=== PATIENT | female | born 1945 | race Caucasian/White ===

== ENCOUNTER 2016-12-04 16:38 | Emergency (ER) | payer OTHER ==
--- NOTE | ~2016-12-04 | EKG ---
PATIENT: CONRADO RAMIREZ UNIT #: [id number] Ventricular Rate: 65 BPM Atrial Rate: 65 BPM P-R Interval: 174 ms QRS Duration: 80 ms Q-T Interval: 442 ms QTC Calculation(Bezet): 459 ms P [place]: 30 degrees Calculated R [place]: 14 degrees Calculated T [place]: 16 degrees Diagnosis Line: Normal sinus rhythm Diagnosis Line: Low voltage QRS Diagnosis Line: Otherwise normal ECG Diagnosis Line: When compared with ECG of 14-JUN-2015 01:51, Diagnosis Line: Fusion complexes are no longer Present Diagnosis Line: Premature ventricular complexes are no longer Diagnosis Line: Present Diagnosis Line: Premature supraventricular complexes are no longer Diagnosis Line: Present Diagnosis Line: Vent. rate has decreased BY 49 BPM Diagnosis Line: ST elevation now present in Lateral leads Diagnosis Line: Nonspecific T wave abnormality no longer evident Diagnosis Line: in Lateral leads Diagnosis Line: Confirmed by WALKER HAIDER MD ([id number]) on 12/08/2016 Diagnosis Line: 5:34:49 PM INTERPRETING MD: VITALY ROSE
--- NOTE | ~2016-12-04 | CR63 ---
[facility] A Service of [facility] RADIOLOGY TEXT RESULTS PATIENT: CONRADO RAMIREZ LOCATION: SED : 45 UNIT #: [id number] AGE: [address]: Stuart Noe SEX: F ORDER DR: [id number] [address] [address] [id number] MR#: [id number] Acc #: [id number] NAME: CONRADO RAMIREZ : 1945 SEX: F STUDY DATE/TIME: 12/04/2016 16:31 UNIT: SED ROOM: STUDY DESCRIPTION: CR Chest 2 View Attending Physician: Stuart Noe P.A.-C. Ordering Physician: Stuart Noe P.A.-C. Primary Care Physician: Edith Berman Aprn MEDICAL IMAGING REPORT This report is preliminary unless electronic signature is present. EXAM PA and lateral chest HISTORY Weakness and fever today. FINDINGS 2 views of the chest demonstrate the cardiac size is at the upper limits of normal. Mild linear atelectasis or scarring in the lateral left base. Small calcified mediastinal and left hilar nodes. No airspace infiltrates, or effusions. IMPRESSION No evidence of active disease. Mild linear atelectasis or scarring in the lateral left base. Borderline cardiac enlargement. Dictated by... Robert Knight M.D. THIS IS AN ELECTRONICALLY VERIFIED REPORT Robert Knight M.D. at 12/06/2016 3:28 PM DFL/angela TD: 12/05/2016 07:10 JOB #: [id number] MEDICAL IMAGING REPORT
[2016-12-04 15:42] LABS: URINE SOURCE CLEAN CATCH
[2016-12-04 15:45] LABS: MICRO INDICATED? YES; URINE APPEARANCE CLEAR; URINE BILIRUBIN NEG (NEG); URINE BLOOD NEG (NEG); URINE COLOR YELLOW; URINE GLUCOSE NEG (NORM); URINE KETONE NEG (NEG); URINE LEUKOCYTE ESTERASE TRACE (NEG); URINE NITRATE NEG (NEG); URINE PROTEIN NEG (NEG); URINE SPECIFIC GRAVITY <=1.005 (1.003-1.035); URINE UROBILINOGEN 0.2 MG/DL (NORM)
[2016-12-04 15:55] LABS: CULTURE INDICATED? NO; URINE BACTERIA NEG (NEG); URINE RBC 0-2 /[HPF] (0-2); URINE WBC 0-2 /[HPF] (0-5)
[~2016-12-04 16:38] MED LIST: ACTOS PO; ADVAIR 2501 DISK W/D PO; ALBUTEROL17 G1 IH; ALBUTEROL17 GM INH; ALBUTEROL17 GM NEB; ASPIRIN PO; ASPIRIN81 M1 PO; ATENOLOL PO; AUGMENTIN PO; AUGMENTIN875 MG PO; BUMEX2 MG PO; CAPOZIDE PO; CAPTOPRIL PO; CAPTOPRIL25 MG PO; CELEBREX PO; CELEXA20 MG PO; CIPRO PO; DARVOCET-N 1001 TAB PO; DIAZIDE; DIFLUCAN PO; DYAZIDE 37.5/251 CAP PO; EFFEXOR PO; FLONASE 0.05% N16 GM IH; FLORASTOR250 M1 PO; GLUCAGEN1 MG/KIT IJ; HYDRALAZINE HCL10 MG PO; HYDROCHLOROTHIA25 MG PO; JUVEN PACKET1 EACH PO; KCL PO; KEFZOL IV; KLONOPIN0.5 MG PO; LANTUS100 U/ML; LANTUS100 U/ML SUBQ; LEVAQUIN PO; LEVAQUIN750 MG PO; LEVEMIR SQ; LEVEMIR SUBQ; LIPITOR PO; LIPITOR80 MG PO; LISINOPRIL10 MG PO; LORTAB 5-325 M1 EACH PO; LORTAB 7.51 TAB 7.5/ PO; MEDROL PO; MEDROL4 MG/DOSE- PO; METFORMIN PO; MULTI VITAMIN1 EACH PO; NILSTAT PO; NORCO 5/325 TAB1 TAB PO; NORVASC PO; NORVASC10 MG PO; NOVOLOG100 U/ML INJ; NOVOLOG100 U/ML SQ; NYSTATIN5 ML PO; OMEPRAZOLE20 M1 PO; PHENERGAN25 MG PO; PREDNISONE10 MG PO; PRILOSEC PO; PRILOSEC20 M1 PO; PROAIR RESPICL90 MCG IH; RONDEC-DM SYRU120 ML PO; SINGULAIR PO; TALADINE150 MG PO; TESSALON200 MG PO; TOPROL XL PO; VIBRAMYCIN100 M1 PO; VITAMIN C W/RO500 MG PO; ZAROXYLYN PO; ZINC SULFATE220 M1 PO; ZOFRAN PO
[2016-12-04 18:00] LABS: BASOPHIL% 0.5 % (0-2.5); EOSINOPHIL# 0.2 X10e3 (0-0.7); EOSINOPHIL% 3.9 % (0.0-7.0); HEMATOCRIT 27.2 % (35.0-45.0); HEMOGLOBIN 9.4 gm/dL (12.0-16.0); LYMPHOCYTE# 1.3 X10e3 (1.0-3.5); LYMPHOCYTE% 30.6 % (17.0-45.0); MEAN CELL VOLUME 89.4 FL (83-96); MEAN CORPUSCULAR HEMOGLOBIN 30.8 PG (28-34); MEAN CORPUSCULAR HGB CONC 34.5 g/dL (30-36); MEAN PLATELET VOLUME 7.2 FL (6.5-11.5); MONOCYTE# 0.5 X10e3 (0-1.0); MONOCYTE% 11.1 % (3.0-12.0); NEUTROPHIL# 2.3 X10e3 (1.5-7.1); NEUTROPHIL% 53.9 % (40-75); PLATELET COUNT 165 X10e3 (140-420); RED BLOOD COUNT 3.04 X10e (3.90-5.30); RED CELL DISTRIBUTION WIDTH 13.1 % (11.0-15.5); WHITE BLOOD COUNT 4.3 X10e3 (4.0-10.5)
[2016-12-04 18:01] LABS: DIFF IND NO
[2016-12-04 18:27] LABS: ALBUMIN SERUM 3.6 g/dL (3.5-5.0); ALKALINE PHOSPHATASE 82 U/L (32-92); ALT (SGPT) 16 U/L (10-40); AST (SGOT) 22 U/L (10-42); BILIRUBIN, DIRECT 0.2 mg/dL (0.0-0.2); BILIRUBIN,INDIRECT 0.4 mg/dL (0.0-0.9); BILIRUBIN,TOTAL 0.6 mg/dL (0.2-2.0); BLOOD UREA NITROGEN 28 mg/dL (9-23); BUN/CREATININE RATIO 31.11; CALCIUM SERUM 8.4 mg/dL (8.4-10.2); CARBON DIOXIDE 21 mmol/L (22-31); CHLORIDE 101 mmol/L (100-111); CREATININE SERUM 0.9 mg/dL (0.6-1.4); GLOM FILT RATE Estimated ABOVE60 mL/min (>60); GLUCOSE FASTING 164 mg/dL (70-110); MAGNESIUM 1.3 mg/dL (1.6-3.0); POTASSIUM 4.4 mmol/L (3.5-5.1); PROTEIN TOTAL SERUM 6.9 g/dL (6.0-8.3); SODIUM 131 mmol/L (135-145)
[2016-12-04 18:53] LABS: POC - CKMB 3.2 ng/mL (0.0-7.9); POC - TROPONIN <0.05 ng/mL (<=0.05)
== END 2016-12-04 19:26 | disposition home or self-care (01) ==
LOC: SED 16:38
PROVIDERS: Emergency Medicine; Physician Assistant
DX: J20.9 Acute bronchitis, unspecified (principal); R53.1 Weakness; E11.9 Type 2 diabetes mellitus without complications; K21.9 Gastro-esophageal reflux disease without esophagitis; F32.9 Major depressive disorder, single episode, unspecified; F17.210 Nicotine dependence, cigarettes, uncomplicated; Z88.2 Allergy status to sulfonamides; Z88.8 Allergy status to other drugs, medicaments and biological substances; Z79.899 Other long term (current) drug therapy
CPT/HCPCS: 36415; 71020; 80048; 80076; 81003; 82553; 83735; 83874; 83880; 84484; 85025; 93005; 99283